=== PATIENT | male | born 1995 | race Caucasian/White ===

== ENCOUNTER 2024-02-10 06:33 | Emergency (ER) | payer SELFPAY ==
[2024-02-10 06:38] VITALS: BP 138/94; PULSE 88; TEMP 36.5; O2SAT 95; BMI 27.0
--- NOTE | 2024-02-10 06:45 | PC.NURSE ---
CRUSH INJURY TO RIGHT GREAT TOE. PT CONCERNED WITH BRUISING TO RIGHT GREAT TOENAIL
--- NOTE | 2024-02-10 07:04 | XR_ITS ---
The [address] [address] Patient Name: AILYN GRANT MRN: [id number] date: 1995 Sex: M Assigned Patient Location: ER Current Patient Location: Accession/Order Number: [id number] Exam Date: 02/10/2024 07:10 Report Date: 02/10/2024 08:06 At the request of: MARGY SELLERS Procedure: XR foot LT min 3V EXAM: XR foot LT min 3V HISTORY: Left great toe pain following a contusion 1 week ago. COMPARISON: None. TECHNIQUE: AP, oblique and lateral views of the left foot performed. FINDINGS: On the lateral projection, there is irregularity along the dorsal margin of the base of the distal phalanx of the great toe. A small intra-articular fracture within this region cannot be excluded. This region is not well visualized and correlation should be made with clinical findings of tenderness within this region. There is no significant soft tissue abnormality. There is a small accessory navicular ossicle. The left foot series is otherwise unremarkable. XR/XR foot LT min 3V IMPRESSION: On the lateral projection, there is irregularity along the dorsal margin of the base of the distal phalanx of the great toe. A small intra-articular fracture within this region cannot be excluded. This region is not well visualized and correlation should be made with clinical findings of tenderness within this region. There is no significant soft tissue abnormality. Electronically authenticated by: JAX TRAYLOR Date: 02/10/2024 08:06
--- NOTE | 2024-02-10 07:20 | ED.LOWEXI1 ---
HPI HPI - Extremity Injury (Lower) General Chief Complaint: Extremity Injury, Lower Stated Complaint: LT FOOT INJURY Time Seen by Provider: 02/10/24 07:01 Source: patient Mode of arrival: walk-in Limitations: no limitations History of Present Illness HPI Narrative: 28-year-old male to the emergency department with chief complaint of injury to his left great toe that occurred a week ago. He reports that he dropped a dumbbell on the toe. He had some bruising to the nailbed. He reports that he has continued pain especially when walking. No other injuries. Related Data Allergies Allergy/AdvReac Type Severity Reaction Status Date / Time No Known Drug Allergies Allergy Verified 02/10/24 06:38 Opioid HPI Opioid Management Most Recent Pain and Opioid Data: No Data to Display Review of Systems ROS Status of ROS 10 or more systems reviewed and unremarkable except as noted in history and below Exam Narrative Exam Narrative: VITALS: I have reviewed the triage vital signs. GENERAL: Well developed, well appearing adult in no acute distress. NEURO: Alert and oriented. Moves all extremities. Face is symmetric and expressive. EYES: PERRL. No scleral icterus or conjunctival injection. No discharge. Left foot: DP and PT pulses are intact. Sensation is intact over the foot. Plantarflexion/dorsiflexion inversion and eversion are intact. No gross deformity appreciated. There is a approximately 50% subungual hematoma of the left great toe. No disruption of the nail. No redness warmth or discharge. SKIN: Warm and dry. Normal turgor. No rash or lesions appreciated. PSYCH: Mood, affect, and interaction is appropriate to the setting. Constitutional Vital Signs, click to edit/add: Last Vital Signs Temp 97.7 F 02/10/24 06:38 Pulse 88 02/10/24 06:38 Resp 16 02/10/24 06:38 BP 138/94 H 02/10/24 06:38 Pulse Ox 95 02/10/24 06:38 O2 Del Method Room Air 02/10/24 06:38 Course Vital Signs Vital signs: Vital Signs Temperature 97.7 F 02/10/24 06:38 Pulse Rate 88 02/10/24 06:38 Respiratory Rate 16 02/10/24 06:38 Blood Pressure 138/94 H 02/10/24 06:38 Pulse Oximetry 95 02/10/24 06:38 Oxygen Delivery Method Room Air 02/10/24 06:38 Temperature 97.7 F 02/10/24 06:38 Pulse Rate 88 02/10/24 06:38 Respiratory Rate 16 02/10/24 06:38 Blood Pressure 138/94 H 02/10/24 06:38 Pulse Oximetry 95 02/10/24 06:38 Oxygen Delivery Method Room Air 02/10/24 06:38 MDM - Extremity Injury (Lower) MDM Narrative Medical decision making narrative: 28-year-old male to the emergency department chief complaint of injury to his left toe that occurred a week ago. X-rays ordered. Discussed with the patient that drainage of subungual hematomas is only effective in the first 72 hours. No indication for drainage at this time. X-ray with questionable fracture. Will place in postop shoe. Follow-up with diesel engine inspector. Patient agrees with this plan. Tylenol and ibuprofen for discomfort at home. Return precautions were discussed. All questions were answered. The patient was discharged home. Imaging Data Foot x-ray: Radiologist's impression: ITS Impressions Foot X-Ray 02/10/24 07:04 IMPRESSION: On the lateral projection, there is irregularity along the dorsal margin of the base of the distal phalanx of the great toe. A small intra-articular fracture within this region cannot be excluded. This region is not well visualized and correlation should be made with clinical findings of tenderness within this region. There is no significant soft tissue abnormality. Electronically authenticated by: DUY TRAYLOR Date: 02/10/2024 08:06 Discharge Plan Discharge Stand Alone Forms: Portal Instructions Chief Complaint: Extremity Injury, Lower Clinical Impression: Closed fracture of toe Patient Disposition: Home, Self-Care Time of Disposition Decision: 08:11 Condition: Good Mode of Transportation: Private Vehicle Print Language: Tongan Instructions: Toe Fracture (ED), Post Surgical Shoe (ED) Additional Instructions: Call the office of your primary care doctor to arrange for follow-up within the above-stated timeframe. Your ED visit was focused on your acute issue and does not replace primary care. You should review your labs, imaging, and diagnoses from this ED visit with your primary care physician. There may be non-emergent/ incidental findings that need further evaluation. You should review your vital signs including blood pressure with your PCP. If you were prescribed medications you should discuss possible side-effects and drug interactions with your pharmacist. Call 911 or go to the nearest Emergency Department if you develop any new or worsening symptoms. Referrals: Jeffery Jefferson MD [Primary Care Provider] - 1 week Duy Segura DPM [Physician] - 1 week
== END 2024-02-10 08:24 | disposition home or self-care (01) ==
PROVIDERS: Emergency Provider Student in an Organized Health Care Education/Training Program; PCP Family Medicine
DX: S92.422A Displaced fracture of distal phalanx of left great toe, initial encounter for closed fracture (principal); W20.8XXA Other cause of strike by thrown, projected or falling object, initial encounter
CPT/HCPCS: 73630; 99283

== ENCOUNTER 2024-08-25 19:14 | Emergency (ER) | payer SELFPAY ==
[2024-08-25 19:20] VITALS: BP 146/92; PULSE 93; TEMP 37; O2SAT 97; BMI 29.5
[2024-08-25 19:23] VITALS: BP 146/92; O2SAT 97
--- OUTSIDE RECORDS SUMMARY | 2024-08-25 19:31 | XMS_ITS | CCD ---
Demographics Address [address] [place] [address] Preferred Language Thai Marital Status Single Alevism Affiliation Unknown Race White Ethnic Group Unknown Author Organization [facility] [employer]URING MACHINE [employer]PER[employer] [facility] Care Team Providers Care Head Irrigator Name Role Phone SANTINO DURON Unavailable Unavailable ARVIND KELSEY Unavailable Unavailable ARVIND KELSEY Unavailable Unavailable MAUDE ANSARI Unavailable Unavailable Problems Problem Classification Problem Date Documented Da te Episodic/Chronic Allergic reactions (1 source) Unspecified contact dermatitis, unspecified cause; Translations: [UNS CONTACT DERMATITIS UNS CAUSE] Onset: 05-14-2017 Episodic Other skin disorders (3 sources) Rash and other nonspecific skin eruption; Translations: [RASH OTH NONSPECIFIC SKIN ERUPTION] Onset: 05-12-2017 Episodic Encounters Encounter Date Encounter Type Care Provider Facility Start: 05-12-2017 End: 05-12-2017 Ambulatory SANTINO DURON Facility: Payers Date Payer Category Payer Self-pay Summary Purpose Family History No Family History Records Found Advance Directives No Advanced Directives Records Found Additional Source Comments (unrecognized sect ion and content) No Status Records Found INFORMATION SOURCE (unrecogn ized section and content) DATE CREATED AUTHOR 12/31/2017 The [facility] FOR RECORDS PERTAINING TO PATIENTS WHO ARE OR HAVE BEEN ENROLLED IN A CHEMICAL DEPENDENCY/SUBSTANCEABUSE PROGRAM, SOME INFORMATION MAY BE OMITTED. This clinical summary was aggregated from multiple sources. Caution should be exercised in using it in the provision of clinical care. This summary normalizes information from multiple sources, and as a consequence, information in this document may materially change the coding, format and clinical context of patient data. In addition, data may be omitted in some cases. CLINICAL DECISIONS SHOULD BE BASED ON THE PRIMARY CLINICAL RECORDS. [facility] [employer] provides no warranty or guarantee of the accuracy or completeness of information in this document.
--- NOTE | 2024-08-25 19:44 | ECG_ITS ---
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
--- NOTE | 2024-08-25 19:44 | ED_ITS ---
HPI HPI - General Adult General Chief complaint: Chest Pain Stated complaint: Chest pain Abdominal Pain Time Seen by Provider: 08/25/24 19:38 Source: patient Mode of arrival: walk-in Limitations: no limitations History of Present Illness HPI narrative: 28-year-old male presents to the emergency department for chest pain. He has been having this intermittently for the last several days. He describes a feeling in a very localized area in his mid sternum that feels like a muscle spasm. It last for few seconds and then goes away. Sometimes his left foot tingles and sometimes he has a pain in the left elbow but his arm does not hurt neither does his shoulder or jaw or neck. Related Data Allergies Allergy/AdvReac Type Severity Reaction Status Date / Time No Known Drug Allergies Allergy Verified 08/25/24 19:20 Opioid HPI Opioid Management Most Recent Opioid Data: No Data to Display Review of Systems ROS Narrative A ten point review of systems is negative except as noted above. PFSH PFSH Social History Little interest or pleasure in doing things: not at all Feeling down, depressed, or hopeless: not at all Exam Narrative Exam Narrative: Nurses note and vital signs reviewed and patient is not hypoxic. General: The patient appears well and in no apparent distress. Patient is resting comfortably on cart. Skin: Warm, dry, no pallor noted. There is no rash noted. Head: Normocephalic, atraumatic Eye: Normal conjunctiva, no drainage Ears, Nose, Mouth, and Throat: oral mucosa is moist. Nares patent. Cardiovascular: Regular Rate and Rhythm, not tachycardic Respiratory: Patient is in no distress, no accessory muscle use, lungs are c lear to auscultation, no wheezing, rales or rhonchi. Good air movement Back: non-tender GI: Soft and nontender Musculoskeletal: The patient has no evidence of calf tenderness, no pitting edema, symmetrical pulses noted bilaterally Neurological: A&O, normal speech Psychiatric: Cooperative Constitutional Vital Signs, click to edit/add: Last Vital Signs Temp 98.6 F 08/25/24 19:20 Pulse 93 H 08/25/24 19:20 Resp 15 08/25/24 19:20 BP 146/92 H 08/25/24 19:23 Pulse Ox 97 08/25/24 19:23 O2 Del Method Room Air 08/25/24 19:20 Course Vital Signs Vital signs: Vital Signs Temperature 98.6 F 08/25/24 19:20 Pulse Rate 93 H 08/25/24 19:20 Respiratory Rate 15 08/25/24 19:20 Blood Pressure 146/92 H 08/25/24 19:20 Pulse Oximetry 97 08/25/24 19:20 Oxygen Delivery Method Room Air 08/25/24 19:20 Temperature 98.6 F 08/25/24 19:20 Pulse Rate 93 H 08/25/24 19:20 Respiratory Rate 15 08/25/24 19:20 Blood Pressure 146/92 H 08/25/24 19:23 Pulse Oximetry 97 08/25/24 19:23 Oxygen Delivery Method Room Air 08/25/24 19:20 Medical Decision Making MDM Narrative Medical decision making narrative: His workup is negative. He is discharged home and will follow-up with his PCP. The patient thinks he may have had a panic attack. There is no evidence of heart disease at this point. Treatment diagnosis and follow-up were discussed with the patient. Differential Diagnosis Differential Diagnosis: Atypical chest pain, panic attack, myocardial infarction, pneumothorax, pne Lab Data Lab results reviewed: Yes I reviewed the patient's lab results Labs: Lab Results 08/25/24 Range/Units 20:00 WBC 9.0 (4.0-11.0) 10^3/uL RBC 5.15 (4.70-6.10) 10^6/uL Hgb 17.1 (14.0-18.0) g/dL Hct 46.1 (42.0-54.0) % MCV 89.5 (80.0-94.0) fL MCH 33.2 (25.9-34.0) pg MCHC 37.1 H (29.9-35.2) g/dL RDW 12.0 (11.0-15.0) % Plt Count 246 (150-450) 10^3/uL MPV 9.5 (9.5-13.5) fL Neut % (Auto) 74.9 (43.0-75.0) % Lymph % (Auto) 18.0 L (20.5-60.0) % Faulkner % (Auto) 5.5 (1.7-12.0) % Eos % (Auto) 1.0 (0.9-7.0) % Baso % (Auto) 0.4 (0.2-2.0) % Neut # (Auto) 6.7 H (1.4-6.5) 10^3/uL Lymph # (Auto) 1.6 (1.2-3.8) 10^3/uL Faulkner # (Auto) 0.5 (0.3-0.8) 10^3/uL Eos # (Auto) 0.1 (0.0-0.7) 10^3/uL Baso # (Auto) 0.0 (0.0-0.1) 10^3/uL Abs Immat Gran (auto) 0.02 (0.00-0.03) 10^3/uL Imm/Tot Granulo (auto) 0.2 (0.0-0.5) % Sodium 140 (136-145) mmol/L Potassium 3.7 (3.5-5.1) mmol/L Chloride 106 (98-107) mmol/L Carbon Dioxide 31.0 (21.0-32.0) mmol/L Anion Gap 6.7 BUN 15.0 (7.0-18.0) mg/dL Creatinine 1.02 (0.70-1.30) mg/dL Est GFR ( Amer) >60 (>=60 mL/min/1.73m^2) Est GFR (Non-Af Amer) >60 (>=60 mL/min/1.73m^2) BUN/Creatinine Ratio 14.7 Glucose 102 (74-106) mg/dL Calcium 9.0 (8.5-10.1) mg/dL Troponin I High Sens 4.2 (4.0-76.1) pg/mL Imaging Data Chest x-ray: Radiologist's impression: Chest x-ray per radiologist shows normal heart size with mildly hypoinflated lungs. No consolidation or edema or effusion or pneumothorax ECG Data Attestation: I personally reviewed and interpreted this ECG as follows: (EKG on my interpretation shows normal sinus rhythm with a rate of 84 no acute change) Discharge Plan Discharge Chief Complaint: Chest Pain Clinical Impression: Chest pain Patient Disposition: Home, Self-Care Time of Disposition Decision: 21:45 Condition: Good Mode of Transportation: Private Vehicle Print Language: [place] Instructions: Chest Pain (ED) Referrals: Jeffery Jefferson MD [Primary Care Provider] - 1 week
[2024-08-25 20:10] LABS: Basophils Percent Auto 0.4 % (0.2-2.0); Eosinophils Absolute Auto 0.1 10^3/uL (0.0-0.7); Hematocrit 46.1 % (42.0-54.0); Hemoglobin 17.1 g/dL (14.0-18.0); Immature Granulocytes Abs Auto 0.02 10^3/uL (0.00-0.03); Immature Granulocytes Pct Auto 0.2 % (0.0-0.5); Lymphocytes Absolute Auto 1.6 10^3/uL (1.2-3.8); Mean Corpuscular HGB Conc 37.1 g/dL (29.9-35.2); Mean Corpuscular Hemoglobin 33.2 pg (25.9-34.0); Mean Corpuscular Volume 89.5 fL (80.0-94.0); Mean Platelet Volume 9.5 fL (9.5-13.5); Monocytes Absolute Auto 0.5 10^3/uL (0.3-0.8); Monocytes Percent Auto 5.5 % (1.7-12.0); Neutrophils Absolute Auto 6.7 10^3/uL (1.4-6.5); Neutrophils Percent Auto 74.9 % (43.0-75.0); Platelet Count 246 10^3/uL (150-450); Red Blood Count 5.15 10^6/uL (4.70-6.10)
[2024-08-25 20:27] LABS: Anion Gap 6.7; BUN Creatinine Ratio 14.7; Chloride 106 mmol/L (98-107); Estimated GFR (African America >60 (>=60 mL/min/1.73m^2); Estimated GFR (Non-African Ame >60 (>=60 mL/min/1.73m^2); Glucose 102 mg/dL (74-106); Potassium 3.7 mmol/L (3.5-5.1); Sodium 140 mmol/L (136-145); Troponin I High Sensitivity 4.2 pg/mL (4.0-76.1)
[2024-08-25 21:57] VITALS: BP 145/67; PULSE 80; O2SAT 99
== END 2024-08-25 22:00 | disposition home or self-care (01) ==
PROVIDERS: Emergency Provider Emergency Medicine; PCP Family Medicine
DX: R07.89 Other chest pain (principal)
CPT/HCPCS: 36415; 71045; 80048; 84484; 85025; 93005; 99285